=== PATIENT | female | born 1955 | race African-American/Black ===

== ENCOUNTER 2019-02-11 09:01 | Emergency (ER) | payer MEDICAID, OTHER ==
[~2019-02-11] VITALS: Ht 167.6 cm; Wt 61.0 kg
[2019-02-11] MEDS ORDERED: SODIUM CHLORIDE 0.9% 1,000 ML IV ONE (09:41)
[2019-02-11 10:26] LABS: BASOPHILS % 0.5 % (0.0-2.0); EOSINOPHILS % 3.9 % (0.0-5.0); HEMATOCRIT. 43.1 % (36.0-48.0); HEMOGLOBIN. 14.5 g/dL (12.0-16.0); LYMPHOCYTES % 29.4 % (20.0-50.0); MEAN CORPUSCULAR HEMOGLOBIN 32.2 pg (28.0-32.0); MEAN CORPUSCULAR VOLUME 95.6 fL (81.0-99.0); MEAN PLATELET VOLUME 8.9 fl (7.4-10.4); MONOCYTES % 5.4 % (2.0-8.0); NEUTROPHILS % 60.8 % (40.0-76.0); PLATELET 217 x1000/uL (130-400); RED BLOOD CELL COUNT 4.51 mill/uL (4.2-5.4); RED CELL DISTRIBUTION WIDTH 13.5 % (11.6-14.6)
[2019-02-11 10:32] LABS: CHLORIDE 105 mEq/L (98-107)
[2019-02-11 10:45] LABS: CLARITY URINE CLEAR (CLEAR); COLOR URINE YELLOW (YELLOW); KETONES URINE NEGATIVE (NEGATIVE); LEUKOCYTE ESTERASE URINE NEGATIVE (NEGATIVE); NITRITE URINE NEGATIVE (NEGATIVE); OCCULT BLOOD URINE NEGATIVE (NEGATIVE); PH URINE 5.5 (4.5-8.0); PROTEIN URINE NEGATIVE (NEGATIVE); SPECIFIC GRAVITY URINE 1.014 (1.005-1.030); UROBILINOGEN URINE 0.2 E.U./dL (0.2-1.0)
[2019-02-11] MEDS: ACETAMINOPHEN 325MG TABLET PO ONE ×2 (11:30→11:53)
[2019-02-11 11:46] VITALS: BP 151/87
== END 2019-02-11 12:01 | disposition home or self-care (01) ==
LOC: ER 09:52
DX: R42 Dizziness and giddiness (principal); R51 Headache; Z98.51 Tubal ligation status; Z98.890 Other specified postprocedural states
CPT/HCPCS: 36415; 70450; 80053; 81003; 85025; 93005; 99284; J7030

== ENCOUNTER 2024-09-19 12:59 | Emergency (ER) | payer MEDICAID, MEDICARE ==
[~2024-09-19] VITALS: Ht 167.6 cm; Wt 64.0 kg
[2024-09-19 13:13] VITALS: O2SAT 98
[2024-09-19] MEDS ORDERED: CETI1TAB MT (16:07)
[2024-09-19] MEDS ORDERED: CIPR2.5D20 LEFTEYE (16:07)
[2024-09-19] MEDS ORDERED: AMOX1TAB16 MT (16:07)
[2024-09-19 16:16] VITALS: BP 144/91; PULSE 79; RESP 18; TEMP 36.8; O2SAT 98
== END 2024-09-19 16:18 | disposition home or self-care (01) ==
LOC: ER 12:59
DX: J32.9 Chronic sinusitis, unspecified (principal); H10.9 Unspecified conjunctivitis
CPT/HCPCS: 99283